=== PATIENT | female | born 1980 | race Caucasian/White ===

== ENCOUNTER 2016-11-11 17:44 | Emergency (ER) | payer SELFPAY ==
[2016-11-11 17:48] VITALS: BP 116/71; BMI 23.3
--- NOTE | 2016-11-11 18:14 | DR.GENAD ---
HPI - PCP Primary Care Physician: CLAUDIO SANTA Comment HPI Comment: Sore throat - Complaint/Symptoms Chief Complaint:: PT. STATED SHE IS COUGH AND THROAT FEELS SWOLLEN,DRY AND SORE , FEVER SINCE LAST NIGHT - Nurses notes reviewed Nurses Notes Review: Yes - Source History Provided: Patient - Mode of Arrival Mode of Arrival: Ambulatory - Timing Onset of Chief Complaint: 11/10/16 Came on: Gradually - Duration Duration: Intermittent How lon Duration: Days - Severity Severity: Moderate - Associated Signs and Symptoms Associated Signs and Symptoms: subjective fever, nausea PMH - PMH Past Medical History: Yes Past Medical History: Hyperthyroidism Past Surgical History: No - Family History History of Family Medical Conditions: No - Social History Does patient currently use any type of tobacco product: Yes Have you used tobacco products in the last 12 months: Yes Type of Tobacco Use: Cigarettes Does any household member use tobacco: No Alcohol Use: Rarely Do you use any recreational Drugs:: No Lives With: Family Lives Where: Home - infectious screening In the last 2 months have you had wt loss of >10#?: NO Have you had fever, night sweats or hemotysis?: No Have you traveled outside the country in the last 6 months?: No Isolation: Standard ROS - Review of Systems Constitutional: No Symptoms Reported Eyes: No Symptoms Reported ENTM: Throat Swelling Respiratoy: No Symptoms Reported Cardiovascular: No Symptoms Reported Gastrointestinal/Abdominal: No Symptoms Reported Genitourinary: No Symptoms Reported Neurological: No Symptoms Reported Musculoskeletal: No Symptoms Reported Integumentary: No Symptoms Reported Hematologic/Lymphatic: No Symptoms Reported Endocrine: No Symptoms Reported Psychiatric: No Symptoms Reported All Other Systems: Reviewed and Negative PE - Vital Signs Vitals: Temperature 97.9 F Pulse Rate 107 Respiratory Rate 20 Blood Pressure 116/71 O2 Sat by Pulse Oximetry 99 - General Limitations: No Limitations General Appearance: Alert, In No Apparent Distress - Head Head Exam: Normal Inspection - Eyes Eye exam: Normal Appearance - ENT ENT Exam: Normal Oropharynx, Mucous Membranes Moist Mouth Exam: Normal Inspection Throat Exam: Normal Inspection - Neck Neck Exam: Normal Inspection - Chest Chest Inspection: Normal Inspection - Respiratory Respiratory Exam: Normal Lung Sounds Bilat - Cardiovascular Cardiovascular Exam: Regular Rate, Normal Rhythm, Normal Heart Sounds MDM - Differential Diagnosis Differential Diagnosis: pharyngitis ROR - Labs Reviewed Laboratory: Streptococcus Screen Negative (NEGATIVE) 11/11/16 18:12 - Diagnosis Discharge Problem: Pharyngitis - Discharge Plan Disposition: 01 HOME, SELF-CARE Condition: Stable - Follow ups/Referrals Follow ups/Referrals: NFD,None [Primary Care Provider] - 3 days - Instructions Instructions: Sore Throat, [id number], Salt Water Gargle, Pharyngitis, Easy- to-Read
== END 2016-11-11 19:01 | disposition home or self-care (01) ==
LOC: ER 17:54
DX: J02.9 Acute pharyngitis, unspecified (principal)
CPT/HCPCS: 87070; 87880; 99282

== ENCOUNTER 2019-02-23 12:44 | Inpatient (IN) ==
[2019-02-23 12:48] VITALS: BMI 29.9
[2019-02-23 13:13] LABS: BILIRUBIN,URINE NEGATIVE (NEGATIVE); BLOOD/HEMOGLOBIN,URINE 1+ (NEGATIVE); GLUCOSE, URINE NEGATIVE (NEGATIVE); KETONES,URINE NEGATIVE (NEGATIVE); LEUKOCYTE ESTERASE ,URINE NEGATIVE (NEGATIVE); NITRITES,URINE NEGATIVE (NEGATIVE); PROTEIN,URINE NEGATIVE (NEGATIVE); UROBILINOGEN,URINE NORMAL (NORMAL)
[2019-02-23 13:20] LABS: APPEARANCE,URINE CLEAR (CLEAR); BACTERIA,URINE TRACE /HPF (NEGATIVE); COLOR,URINE YELLOW (YELLOW); RBC,URINE 0-2 /HPF (0-3); SQUAMOUS EPITHELIAL CELL,UR MANY /HPF (NEGATIVE)
[2019-02-23 13:27] LABS: AMNISURE ROM TEST THERE IS A RUPTURE (NO RUPTURE)
[2019-02-23 14:51] LABS: BASOPHILS % (AUTO) 0.3 % (0.2-1.0); EOSINOPHILS # (AUTO) 0.1 x10^3/uL (0.0-0.2); EOSINOPHILS % (AUTO) 1.2 % (0.9-2.9); HEMATOCRIT 33.6 % (36.0-47.0); HEMOGLOBIN 11.9 g/dL (12.0-16.0); LYMPHOCYTES % (AUTO) 22.5 % (21.0-51.0); MEAN CORPUSCULAR HEMOGLOBIN 31.8 pg (27.0-34.0); MEAN CORPUSCULAR HGB CONC 35.3 g/dL (33.0-35.0); MEAN PLATELET VOLUME 8.2 fL (7.4-11.0); MONOCYTES # (AUTO) 0.6 x10^3/uL (0.3-0.8); MONOCYTES % (AUTO) 6.1 % (0.0-13.0); NEUTROPHILS # (AUTO) 6.4 x10^3/uL (2.2-4.8); NEUTROPHILS % (AUTO) 69.9 % (42.0-75.0); PLATELET COUNT 245 X10^3/uL (150.0-450.0); RED BLOOD COUNT 3.73 X10^6/uL (3.5-5.4); RED CELL DISTRIBUTION WIDTH 12.5 % (11.6-16.5); WHITE BLOOD COUNT 9.1 X10^3/uL (3.6-10.0)
[2019-02-23 15:03] LABS: ALANINE AMINOTRANSFERASE 44 Units/L (12-78); ALBUMIN 2.5 g/dL (3.4-5.0); ALKALINE PHOSPHATASE 149 Units/L (46-116); ASPARTATE AMINO TRANSFERASE 27 Units/L (15-37); BLOOD UREA NITROGEN 11 mg/dL (7-18); CALCIUM 8.4 mg/dL (8.5-10.1); CARBON DIOXIDE 21.7 mmol/L (21-32); CHLORIDE 103 mmol/L (98-107); COR CA(FOR HYPOALB) 9.6 mg/dL (8.5-10.1); CREATININE 0.54 mg/dL (0.55-1.02); SODIUM 136 mmol/L (136-145); TOTAL PROTEIN 7.1 g/dL (6.4-8.2); eGFR NON BLACK RACES > 60 (>60)
[2019-02-23] MEDS ORDERED: D5 1/2 NS 1000 ML 1,000 ML IV ONE ×2 (15:03→15:05)
[2019-02-23] MEDS ORDERED: LR 1000 ML IV 1,000 ML IV ONE (15:04)
[2019-02-23] MEDS ORDERED: D5 1/2 NS 1L W PITOCIN 20 UNITS/L 20 UNITS/1,000 ML BAG IV ONE (15:05)
[2019-02-23] MEDS ORDERED: PITOCIN ONE (15:05)
[2019-02-23] MEDS ORDERED: NS 100 ML IV 100 ML IV ONE (15:14)
[2019-02-23] MEDS ORDERED: AMPICILLIN VIAL 2 GRAM ONE (15:14)
--- NOTE | 2019-02-23 15:20 | US ---
HISTORY: Evaluate position Study: Limited OB ultrasound Comparison: None Technique: Multiple grayscale and color flow Doppler images of the pelvis were obtained with focused evaluation of the fetus. Findings: A viable single intrauterine is identified with heart tones of 128 beats per minute. A cephalic presentation is observed with an anterior and fundal placenta. Value Estimated Gestational Age BPD 8.7 cm 35 weeks, 1 day HC 31.2 cm 34 weeks, 6 days IMPRESSION: Limited OB ultrasound demonstrating a viable single intrauterine in cephalic presentation with an average ultrasound age of 35 weeks, 0 days. Reported By:
[2019-02-23] MEDS ORDERED: FENTANYL INJ 100 mcg ONE (15:36)
[2019-02-23] MEDS ORDERED: NAROPIN EPIDURAL 0.2% + FENTANYL 90MCG 60 ML EPI ONE (15:37)
[2019-02-23] MEDS ORDERED: XYLOCAINE 2% and EPINEPHRINE 1:100,000 ONE (16:48)
--- NOTE | 2019-02-23 19:26 | DR.OB ---
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 Head delivered over intact perineum. No nuchal cord. Nose and mouth bulb suctioned. Body delivered over intact perineum. Cord clamped x 2 and cut. handed to attendant. Cord sent for gases. Placenta delivered spontaneously / intact / 3 vessel cord. No CVX or perineal tears. A small right sidewall tear noted requiring a figure-of-8 stitch of 0- vicryl for hemostasis. Viable female , VTX/OA, wt=5'0" and 6/7/9, stable to NBN. Mother stable to RR. [id number].
[2019-02-23] MEDS ORDERED: PHENERGAN INJ 25 MG IM PRN (19:27)
[2019-02-23] MEDS ORDERED: DERMOPLAST SPRAY TOP PRN (20:19)
[2019-02-23] MEDS ORDERED: ADACEL or BOOSTRIX TDaP VACCINE IM ONE (20:19)
[2019-02-23] MEDS ORDERED: MILK OF MAGNESIA PO PRN (20:19)
[2019-02-23] MEDS ORDERED: AMBIEN PO PRN (20:19)
[2019-02-23] MEDS: D5 1/2 NS 1000 ML 1,000 ML with PITOCIN 20 UNITS IV SCH ×2 (23:48)
[2019-02-24] MEDS: ZANTAC PO SCH ×3 (02:49→23:16)
[2019-02-24] MEDS: D5 1/2 NS 1000 ML 1,000 ML with PITOCIN 20 UNITS IV SCH ×4 (04:46→23:15)
[2019-02-24 05:32] LABS: HEMATOCRIT 28.6 % (36.0-47.0)
[2019-02-24] MEDS ORDERED: ADACEL or BOOSTRIX TDaP VACCINE IM ONE (05:32)
[2019-02-24] MEDS: PRENATAL PLUS PO SCH (09:40)
[2019-02-24] MEDS: MOTRIN TAB 800 MG PO PRN ×2 (15:00→23:42)
[2019-02-25] MEDS: D5 1/2 NS 1000 ML 1,000 ML with PITOCIN 20 UNITS IV SCH ×2 (05:01)
[2019-02-25] MEDS: PRENATAL PLUS PO SCH (09:17)
[2019-02-25] MEDS: ZANTAC PO SCH (09:18)
[2019-02-25 13:41] VITALS: BP 108/68
== END 2019-02-25 12:05 | disposition home or self-care (01) | DRG 807 ==
LOC: ER 12:44 → LD 14:51 → MED/SURG 20:10
PROVIDERS: ADMIT Specialist; ATTEND Specialist
DX: Z23 Encounter for immunization; O70.1 Second degree perineal laceration during delivery; B95.1 Streptococcus, group B, as the cause of diseases classified elsewhere; O60.13X0 Preterm labor second trimester with preterm delivery third trimester, not applicable or unspecified; O99.824 Streptococcus B carrier state complicating childbirth; O99.343 Other mental disorders complicating pregnancy, third trimester; Z37.0 Single live birth; Z3A.35 35 weeks gestation of pregnancy
CPT/HCPCS: 36415; 59409; 76815; 80053; 80307; 81001; 84112; 85014; 85018; 85025; 86592; 86850; 86900; 86901; 90715; 96365; 96367; 99284; A4216; A4222; S0197; G0434; J0290; J2001; J2590; J3010; J7050; J7120; S5010